=== PATIENT | female | born 1970 ===

== ENCOUNTER 2019-01-02 21:53 | Emergency (ER) | payer OTHER ==
[~2019-01-02] VITALS: Ht 162.6 cm; Wt 70.0 kg
--- NOTE | 2019-01-02 22:05 | NUR ---
PT PICKS AND CHOOSES WHICH QUESTIONS SHE ANSWERS - SHE IS ABLE TO AND WILLING TO TELL ME HER BIRTHDAY AND LAST NAME AND THEN STARTS YELLING CUSS WORDS AGAIN.
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
--- NOTE | 2019-01-02 22:14 | NUR ---
WHEN STAFF (ASIDE FROM RN) LEAVE THE ROOM PT QUIETS DOWN AND IS STILL. ONCE ANY STAFF ENTERS THE ROOM I.E. GRAPHITE DISK ASSEMBLER OR SECURITY, PT ONCE AGAIN BECOMES VOCAL AND MOVES ABOUT THE GURNEY.
--- NOTE | 2019-01-02 22:17 | NUR ---
WHILE SUPINE ON GURNEY PT TENSES HER BODY AND STARTS SPITTING AND MAKING SNORING NOISES. THERE IS NO CHANGE IN HER VITALS DURING THIS TIME. IT LASTS FOR APPROX 60 SECONDS AND THEN PT IS IMMEDIATELY ABLE TO ANSWER QUESTIONS TO HER CHOSING. WHEN QUESTIONED ABOUT DRUG USE SHE STATES "NO, NEVER" WHEN ASKED HOW MUCH SHE HAS HAD TO DRINK SHE STATES "6 SHOTS" -
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
[2019-01-02 22:41] VITALS: BP 112/68
--- NOTE | 2019-01-02 22:47 | NUR ---
NO ORAL TRAUMA, NO INCONTINENCE, NO POSTICTAL STATE, NO TONIC CLONIC ACTIVITY NOTICED/OBSERVED Addendum: 01/02/19 at 2247 by SAVITA THIS STATEMENT IS AN ADDENDUM TO NOTE FROM [id number]
== END 2019-01-02 22:30 ==
LOC: ER 21:54
DX: F10.129 Alcohol abuse with intoxication, unspecified (principal); R00.0 Tachycardia, unspecified; Z85.05 Personal history of malignant neoplasm of liver; Z85.528 Personal history of other malignant neoplasm of kidney; Y90.9 Presence of alcohol in blood, level not specified
CPT/HCPCS: 93005; 99283